=== PATIENT | female | born 1980 | race Caucasian/White ===

== ENCOUNTER 2025-05-29 08:06 | Outpatient (CLI) | payer BC | END 2025-05-29 08:07 | disposition home or self-care (01) | LOC: CSHLAB 08:06 | PROVIDERS: ATTEND Student in an Organized Health Care Education/Training Program | DX: Z01.812 Encounter for preprocedural laboratory examination (principal); N93.9 Abnormal uterine and vaginal bleeding, unspecified | CPT/HCPCS: 84703; 85027; 86850; 86900; 86901 ==

== ENCOUNTER 2025-05-31 06:15 | Day surgery (SDC) | payer BC ==
[2025-05-29 08:32] VITALS: BMI 33.5
[2025-05-29 08:54] LABS: Hematocrit 40.5 % (34.9-44.5); Hemoglobin 13.4 g/dL (12.0-15.5); Mean Corpuscular Hemoglobin 28.4 pg (27.0-33.0); Mean Corpuscular Volume 85.8 fL (81.6-98.3); Platelet Count 246 10x3/uL (150-450); Red Blood Cell (RBC) Count 4.72 10x6/uL (3.90-5.03); White Blood Cell (WBC) Count 8.57 10x3/uL (3.5-10.5)
[2025-05-29 09:26] LABS: BHCG - Serum Negative (NEGATIVE); Pregs Control Background? CLEAR/WHITE (CLR/WHITE); Pregs Control Bar Appear? YES (CONTROL BAR)
[2025-05-31] MEDS ORDERED: Rocuronium Bromide 10 MG/ML (10ML VIAL) ONE (06:29)
[2025-05-31] MEDS ORDERED: SUGAMMADEX SODIUM 200 MG/2 ML VIAL ONE (06:29)
[2025-05-31] MEDS ORDERED: Ondansetron PF 4 MG/2 ML Vial ONE ×2 (06:29→10:37)
[2025-05-31] MEDS ORDERED: PROPOFOL 40 ML ONE (06:30)
[2025-05-31] MEDS ORDERED: Lidocaine 1% PF 5 ML VIAL ONE ×2 (06:32→08:05)
[2025-05-31] MEDS ORDERED: diphenhydrAMINE 50 MG/ML VIAL ONE (06:33)
[2025-05-31] MEDS ORDERED: Gabapentin 300 MG CAP ONE (06:47)
[2025-05-31] MEDS ORDERED: metroNIDAZOLE 500 MG (100 mL) BAG ONE (06:47)
[2025-05-31] MEDS ORDERED: Famotidine/PF 20 mg/2ml Vial ONE (06:48)
[2025-05-31] MEDS ORDERED: CEFAZOLIN 1 GM VIAL ONE ×2 (08:00)
[2025-05-31] MEDS ORDERED: oxyCODONE 5 MG TAB ONE (10:09)
[2025-05-31] MEDS ORDERED: Ketorolac Tromethamine 30 MG (1 mL) VIAL ONE (11:06)
== END 2025-05-31 12:05 | disposition home or self-care (01) ==
LOC: CSHSDC 06:15
PROVIDERS: ATTEND Student in an Organized Health Care Education/Training Program
PROC: 0UT7FZZ Resection of Bilateral Fallopian Tubes, Via Natural or Artificial Opening With Percutaneous Endoscopic Assistance (ICD-10-PCS; principal; 2025-05-31)
PROC: 0UT9FZZ Resection of Uterus, Via Natural or Artificial Opening With Percutaneous Endoscopic Assistance (ICD-10-PCS; principal; 2025-05-31)
DX: N72 Inflammatory disease of cervix uteri (principal); N87.9 Dysplasia of cervix uteri, unspecified; N88.8 Other specified noninflammatory disorders of cervix uteri
CPT/HCPCS: 84703; 85027; 86850; 86900; 86901; 88307; J0690; J1100; J1200; J1885; J2250; J2371; J2704